=== PATIENT | male | born 1980 | race Caucasian/White ===

== ENCOUNTER → 2022-12-15 | Outpatient (CLI) | payer BC ==
--- NOTE | 2022-12-18 09:23 | PE ---
EXAMINATION TYPE: PET CT fusion skull to thigh DATE OF EXAM: 12/15/2022 COMPARISON: None Prior PET/CT: None HISTORY: Head and neck cancer TECHNIQUE: Following the intravenous administration of 11 mCi of F-18 FDG, whole body images are per formed from the skull base to the midthigh. Images are reviewed on the computer in the coronal, axia l, and sagittal planes. Reconstructed rotating images are created on independent workstation and rev iewed on the computer. A localization and attenuation correction CT is performed in conjunction wit h the PET scan. DLP: 744.94 mGycm SCAN: Initial Blood glucose: 100 mg/dL Average Mediastinum SUV: 1.6 by Average Liver SUV: 2.4 FINDINGS: Head and neck: Uptake within the right submandibular gland is has mild uptake at 2.9 SUV. For compari son the left submandibular gland SUV is 1.29. The right jugulodigastric lymph node on these images me asures 2.38. Uptake within the brain appears symmetrical. NECK: There is uptake along the medial aspect right anterior mandible. This is partially obscured by beam hardening artifact from dental amalgam. SUV is 3.91. There is milder increased uptake within prominent 0.9 cm right submandibular gland with an SUV of 2.6 . Slightly posterior is a jugulodigastric lymph node with an SUV of 2.4. THORAX: No abnormal uptake ABDOMEN: No abnormal uptake PELVIS: No abnormal uptake OSSEOUS STRUCTURES: No abnormal uptake LOCALIZATION CT: Some scattered shoddy lymphadenopathy is present. COMPARISON: None IMPRESSION: 1. Increased uptake right submandibular gland. An inflammatory process or neoplastic process should b e considered. 2. There is mild uptake within an adjacent right jugulodigastric lymph node which is somewhat promine nt.
== END | disposition home or self-care (01) ==
LOC: RADPETMAIN 13:11
PROVIDERS: ATTEND Registered Nurse
DX: C02.1 Malignant neoplasm of border of tongue (principal); K11.8 Other diseases of salivary glands; R59.0 Localized enlarged lymph nodes
CPT/HCPCS: 78815; A9552

== ENCOUNTER → 2023-01-23 | Outpatient (CLI) | payer BC | END | disposition home or self-care (01) | LOC: LABWHC1 07:00 | PROVIDERS: ATTEND Family Medicine | DX: Z53.9 Procedure and treatment not carried out, unspecified reason (principal) ==

== ENCOUNTER 2023-01-30 10:01 | Day surgery (SDC) | payer BC ==
[2023-01-26 09:50] VITALS: BMI 34.7
[2023-01-30] MEDS ORDERED: LACTATED RINGERS 1,000 ML IV SCH (10:18)
[2023-01-30 10:30] VITALS: TEMP 97.6
[2023-01-30] MEDS ORDERED: PROPOFOL 10 MG/ML 20 ML VIAL IV ONE (11:10)
--- NOTE | 2023-01-30 11:13 | P.GSHP ---
History of Present Illness H&P Date: 01/30/23 Chief Complaint: Family history of colon cancer 42-year-old male here for colonoscopy. Patient with personal history of tongue cancer. Family history of colon cancer in grandparents. No bowel complaints. Past Medical History Additional Past Medical History / Comment(s): tongue cancer History of Any Multi-Drug Resistant Organisms: None Reported Additional Past Surgical History / Comment(s): partial glosectomy, neck dissection on right side took lymph nodes Past Anesthesia/Blood Transfusion Reactions: No Reported Reaction Additional Past Anesthesia/Blood Transfusion Reaction / Comment(s): no blood transfusion Past Psychological History: No Psychological Hx Reported Smoking Status: Former smoker Past Alcohol Use History: None Reported Additional Past Alcohol Use History / Comment(s): September 2022 quit Past Drug Use History: None Reported - Past Family History Father Family Medical History: Cancer Additional Family Medical History / Comment(s): melanoma Mother Family Medical History: Cancer Additional Family Medical History / Comment(s): melanoma Medications and Allergies Home Medications Medication Instructions Recorded Confirmed Type No Known Home Medications 01/30/23 01/30/23 History Allergies Allergy/AdvReac Type Severity Reaction Status Date / Time No Known Allergies Allergy Verified 01/30/23 10:18 Surgical - Exam Vital Signs Temp Pulse Resp BP Pulse Ox 97.6 F 68 18 135/79 98 01/30/23 10:28 01/30/23 10:28 01/30/23 10:28 01/30/23 10:28 01/30/23 10:28 Physical exam: General: Well-developed, well-nourished HEENT: Normocephalic, sclerae nonicteric Abdomen: Nontender, nondistended Extremities: No edema Neuro: Alert and oriented Assessment and Plan (1) Family history of colon cancer Narrative/Plan: We'll proceed with colonoscopy at this time. Current Visit: Yes Status: Acute Code(s): Z80.0 - FAMILY HISTORY OF MALIGNANT NEOPLASM OF DIGESTIVE ORGANS SNOMED Code(s): 651892240
--- NOTE | 2023-01-30 11:29 | P.PCN ---
Date of Procedure: 01/30/23 Procedure(s) Performed: PREOPERATIVE DIAGNOSIS: Family history of colon cancer POSTOPERATIVE DIAGNOSIS: Transverse colon polyp, diverticulosis PROCEDURE: Colonoscopy with snare polypectomy ANESTHESIA: MAC SURGEON: Norbert Nina M.D. SPECIMENS: Polyp ENDOSCOPIC PROCEDURE: The patient was placed on the endoscopy table in the left decubitus position. The Olympus colonoscope was inserted into the anus and passed under direct visualization to the base of the cecum. The appendiceal orifice was visualized. From that point the scope was slowly withdrawn inspecting all surfaces carefully. There were no neoplastic inflammatory or polypoid lesions throughout the cecum and ascending colon. In the transverse colon a small polyp was seen and removed using the snare technique. The remainder of the transverse descending sigmoid and rectum were free of neoplastic or inflammatory changes. There was mild left-sided diverticulosis. Digital rectal examination was normal. The patient was taken to the recovery room in stable condition per anesthesia guidelines. RECOMMENDATIONS: Await biopsy results. Anticipate repeat colonoscopy 5-10 years.
[2023-01-30 12:02] VITALS: BP 112/79; PULSE 70; RESP 15
== END 2023-01-30 12:15 | disposition home or self-care (01) ==
LOC: ORWHC2ENDO 10:01
PROVIDERS: ATTEND Surgery
DX: D12.3 Benign neoplasm of transverse colon (principal); K57.30 Diverticulosis of large intestine without perforation or abscess without bleeding; Z80.0 Family history of malignant neoplasm of digestive organs; Z87.891 Personal history of nicotine dependence; Z85.810 Personal history of malignant neoplasm of tongue
CPT/HCPCS: 88305; 45385; J2704